=== PATIENT | male | born 1950 | race Caucasian/White ===

== ENCOUNTER 2016-12-30 12:05 | Emergency (ER) | payer MEDICARE, OTHER ==
[~2016-12-30] VITALS: Ht 180.3 cm; Wt 180.0 kg
[2016-12-30] MEDS ORDERED: LEVAQUIN750 M1 PO (14:27)
[2016-12-30 14:45] VITALS: BP 132/64
== END 2016-12-30 14:45 | disposition home or self-care (01) ==
LOC: ED 12:05
DX: J18.9 Pneumonia, unspecified organism (principal); I10 Essential (primary) hypertension; E11.9 Type 2 diabetes mellitus without complications; I25.2 Old myocardial infarction; Z95.5 Presence of coronary angioplasty implant and graft